=== PATIENT | female | born 2000 | race Two or more races ===

== ENCOUNTER 2022-10-16 09:53 | Emergency (ER) | payer MEDICAID ==
[~2022-10-16] VITALS: Ht 167.6 cm; Wt 98.0 kg
[2022-10-16 10:06] VITALS: BP 128/75
[2022-10-16] MEDS ORDERED: IBUP-2028 MT (11:55)
[2022-10-16] MEDS ORDERED: BENZ100C86 MT (11:55)
[2022-10-16] MEDS ORDERED: GUAI-453 MT (11:55)
== END 2022-10-16 12:20 | disposition home or self-care (01) ==
LOC: ER 10:27
DX: J06.9 Acute upper respiratory infection, unspecified (principal)
CPT/HCPCS: 99283